=== PATIENT | female | born 1950 | race Caucasian/White ===

== ENCOUNTER → 2021-11-22 | Outpatient (CLI) | payer MEDICARE | LOC: RAD 09:42 → VAS 09:42 → RAD 10:30 | DX: M79.662 Pain in left lower leg (principal) ==

== ENCOUNTER → 2022-05-19 | Outpatient (CLI) | payer MEDICARE | LOC: RAD 11:12 | DX: S83.282A Other tear of lateral meniscus, current injury, left knee, initial encounter (principal); M71.22 Synovial cyst of popliteal space [Baker], left knee; M67.462 Ganglion, left knee; M71.30 Other bursal cyst, unspecified site ==